=== PATIENT | male | born 1955 | race Caucasian/White ===

== ENCOUNTER 2017-05-25 06:39 | Day surgery (SDC) | payer OTHER ==
[~2017-05-25 06:39] MED LIST: CARBACHOL 0.01% 1.5 ML OPH INJ; EPINEPHrine 1 MG INJ; LIDOCAINE 1% (MPF) 10 ML INJ; TOBRAMYCIN 0.3% 3.5 GM OPH OINT; TRYPAN BLUE 0.5 ML SYG IO
[2017-05-25] MEDS: LACTATED RINGER'S 1,000 ML IV (07:00)
[2017-05-25] MEDS: BROMFENAC SODIUM 1.7 ML OPH DROP OPER (07:29)
[2017-05-25] MEDS: CYCLOPENTOLATE 2% 2 ML OPH OPER (07:29)
[2017-05-25] MEDS: MOXIFLOXACIN 0.5% 3 ML OPH OPER (07:29)
[2017-05-25] MEDS: TROPICAMIDE 1% 3 ML OPH OPER (07:30)
[2017-05-25] MEDS: PHENYLephrine 10% 5 ML OPH OPER (07:30)
[2017-05-25] MEDS: TETRACAINE 0.5% 4 ML OPH OPER (07:30)
[2017-05-25] MEDS: LIDOCAINE 3.5% GEL TUBE OPER (07:31)
[2017-05-25] MEDS ORDERED: LIDOCAINE 1%/EPI 30 ML INJ (08:12)
[2017-05-25] MEDS: LIDOCAINE 1% (MPF) 10 ML INJ INJ (08:15)
[2017-05-25] MEDS: LIDOCAINE 1%/EPI (1:100,000) (MDV) 20 ML INJ (08:15)
[2017-05-25] MEDS ORDERED: FENTAnyl 50 MCG/ML VIAL ×2 (08:30→09:08)
[2017-05-25] MEDS ORDERED: LABETALOL HCL 20MG INJ ×2 (08:51→09:24)
[2017-05-25] MEDS: TOBRAMYCIN 0.3% 3.5 GM OPH OINT RIGHT EYE (08:58)
[2017-05-25] MEDS ORDERED: MEPERIDINE 25 MG INJ IV (09:00)
[2017-05-25] MEDS ORDERED: DIPHENHYDRAMINE 50 MG INJ IV (09:00)
[2017-05-25] MEDS ORDERED: FENTAnyl 50 MCG/ML VIAL IV (09:00)
[2017-05-25] MEDS ORDERED: ONDANSETRON 4 MG INJ IV (09:00)
[2017-05-25] MEDS: LABETALOL HCL 20MG INJ IV (09:37)
== END 2017-05-25 11:38 | disposition home or self-care (01) ==
LOC: SDS 06:39
DX: H25.9 Unspecified age-related cataract (principal); I10 Essential (primary) hypertension; E11.9 Type 2 diabetes mellitus without complications; E78.5 Hyperlipidemia, unspecified
CPT/HCPCS: 66984; 82962; 93005

== ENCOUNTER 2017-06-29 05:20 | Day surgery (SDC) | payer OTHER ==
[2017-06-29] MEDS: MOXIFLOXACIN 0.5% 3 ML OPH OPER (06:13)
[2017-06-29] MEDS: BROMFENAC SODIUM 1.7 ML OPH DROP OPER (06:13)
[2017-06-29] MEDS: PHENYLephrine 10% 5 ML OPH OPER (06:13)
[2017-06-29] MEDS: TROPICAMIDE 1% 3 ML OPH OPER (06:14)
[2017-06-29] MEDS: LIDOCAINE 3.5% GEL TUBE OPER (06:14)
[2017-06-29] MEDS: TETRACAINE 0.5% 4 ML OPH OPER (06:14)
[2017-06-29] MEDS: CYCLOPENTOLATE 2% 2 ML OPH OPER (06:14)
[2017-06-29] MEDS ORDERED: CARBACHOL 0.01% 1.5 ML OPH INJ (06:25)
[2017-06-29] MEDS ORDERED: TOBRAMYCIN 0.3% 3.5 GM OPH OINT (06:25)
[2017-06-29] MEDS ORDERED: EPINEPHrine 1 MG INJ (06:25)
[2017-06-29] MEDS ORDERED: TRYPAN BLUE 0.5 ML SYG IO (06:25)
[2017-06-29] MEDS ORDERED: LIDOCAINE 1%/EPI 30 ML INJ (06:39)
[2017-06-29] MEDS ORDERED: LACTATED RINGER'S 1,000 ML IV (07:00)
[2017-06-29] MEDS ORDERED: LIDOCAINE 100 MG SYRINGE (07:00)
[2017-06-29] MEDS: NA HYALURONATE/CHONDROITIN 0.5 ML SYG RIGHT EYE (07:12)
[2017-06-29] MEDS: LIDOCAINE 1%/EPI 30 ML INJ INJ (07:12)
[2017-06-29] MEDS ORDERED: PROPOFOL 20 ML (07:16)
[2017-06-29 07:35] LABS: ADD MAN DIFF? NO
[2017-06-29 07:37] LABS: BASOPHIL # 0.1 10^3/ul (0.0-0.1); EOSINOPHILS # 0.3 10^3/ul (0.0-0.5); HEMATOCRIT 38.5 % (42.0-52.0); HEMOGLOBIN 13.5 g/dl (14.0-18.0); LYMPHOCYTES # 3.1 10^3/ul (0.8-2.9); LYMPHOCYTES % 44.1 % (15.0-51.0); MEAN CORPUSCULAR HEMOGLOBIN 30.2 pg (29.0-33.0); MEAN CORPUSCULAR HGB CONC 35.1 g/dl (32.0-37.0); MEAN CORPUSCULAR VOLUME 86.1 fl (82.0-101.0); MEAN PLATELET VOLUME 11.8 fl (7.4-10.4); MONOCYTE # 0.5 10^3/ul (0.3-0.9); MONOCYTES % 6.5 % (0.0-11.0); NEUTROPHIL # 3.1 10^3/ul (1.6-7.5); NEUTROPHILS % 44.1 % (39.0-77.0); PLATELET COUNT 217 10^3/UL (140-415); RED BLOOD COUNT 4.47 10^6/ul (4.70-6.10); RED CELL DISTRIBUTION WIDTH 12.9 % (11.5-14.5)
[2017-06-29] MEDS: TOBRAMYCIN 0.3% 3.5 GM OPH OINT RIGHT EYE (07:48)
[2017-06-29 07:50] LABS: ANION GAP 14 (8-16); BLOOD UREA NITROGEN 27 mg/dl (7-20); CALCIUM 9.3 mg/dl (8.4-10.2); CARBON DIOXIDE 20 mmol/L (21-31); CHLORIDE 111 mmol/L (97-110); CREATININE 0.92 mg/dl (0.61-1.24); GLUCOSE 157 mg/dl (70-220); POTASSIUM 3.6 mmol/L (3.5-5.1); SODIUM 141 mmol/L (135-144)
[2017-06-29 08:01] LABS: INR 1.01; PROTIME 13.4 Sec (11.9-14.9)
[2017-06-29 08:02] LABS: PARTIAL THROMBOPLASTIN TIME 30.7 Sec (25.0-35.0)
[2017-06-29] MEDS ORDERED: CEFAZOLIN 1 GM INJ (08:16)
[2017-06-29] MEDS ORDERED: MEPERIDINE 25 MG INJ IV (08:30)
[2017-06-29] MEDS ORDERED: OXYCODONE/ACETAMINOPHEN (5/325) TAB PO ×2 (08:30)
[2017-06-29] MEDS ORDERED: FENTAnyl 50 MCG/ML VIAL IV ×3 (08:30)
[2017-06-29] MEDS ORDERED: ONDANSETRON 4 MG INJ IV (08:30)
[2017-06-29] MEDS ORDERED: KETOROLAC 30 MG INJ IV (08:30)
[2017-06-29] MEDS ORDERED: LABETALOL HCL 20MG INJ IV (08:30)
[2017-06-29] MEDS ORDERED: hydrALAzine 20 MG INJ IV (08:30)
[2017-06-29] MEDS ORDERED: METOCLOPRAMIDE 10 MG INJ IV (08:30)
[2017-06-29] MEDS ORDERED: EPHEDrine SULFATE 50 MG/5 ML SYG IV (08:30)
[2017-06-29] MEDS ORDERED: HYDROmorphONE (0.2 MG/ML) 10ML SYG IV ×3 (08:30)
[2017-06-29] MEDS ORDERED: DIPHENHYDRAMINE 50 MG INJ IV (08:30)
== END 2017-06-29 10:05 | disposition home or self-care (01) ==
LOC: SDS 05:20
DX: H25.11 Age-related nuclear cataract, right eye (principal); H21.81 Floppy iris syndrome; I10 Essential (primary) hypertension; E11.9 Type 2 diabetes mellitus without complications; E66.01 Morbid (severe) obesity due to excess calories; Z68.31 Body mass index [BMI] 31.0-31.9, adult
CPT/HCPCS: 66984; 80048; 82962; 85025; 85610; 85730